=== PATIENT | male | born 1975 | race Caucasian/White ===

== ENCOUNTER 2016-06-21 09:19 | Emergency (ER) | payer OTHER ==
[~2016-06-21] VITALS: Ht 193 cm; Wt 122.5 kg
[~2016-06-21 09:19] MED LIST: BENTYL20 MG PO; SUBOXONE 8 MG-21 FIL SL
--- NOTE | 2016-06-21 10:54 | ED GENERAL ADULT ---
History of Present Illness General Chief Complaint: Lower Extremity Injury Stated Complaint: LEFT KNEE PAIN, S/P INJURY AT WORK Source: patient, old records Exam Limitations: no limitations Vital Signs & Intake/Output Vital Signs & Intake/Output Vital Signs Date Time Temp Pulse Resp B/P Pulse O2 O2 Flow FiO2 Ox Delivery Rate 06/21 1210 85 125/84 06/21 0930 79 22 139/79 99 Allergies Coded Allergies: No Known Allergies (08/14/15) Reconcile Medications BUPRENORPHINE HCL/NALOXONE HCL (Suboxone 8 MG-2 MG Sl Film) 1 GRETCHEN GRETCHEN 1 TAB SL D TO GET OFF PERCOCET (Reported) Diclofenac Sodium 75 MG TABLET.DR 1 TAB PO BID PRN PAIN/SWELLING Dicyclomine Hydrochloride (Bentyl) 20 MG TAB 1 TAB PO 4 TIMES/DAY PRN abdominal pain Triage Note: PER PT L KNEE PAIN X 1 MONTH, WENT TO PMD WAS SCHEDULED FOR XR HAS REQUISTION FOR IT, YESTERDSY WHILE AT WORK, SLIPPED ON ICE AND RE-INJURED IT. PAIN AND SWELLING WORSE. Triage Nurses Notes Reviewed? yes HPI: Patient is a 40-year-old male presents complaining of left knee pain and right hand pain. Patient reports that he injured his left knee approximately one month ago then yesterday he was walking, slipped on the ice and twisted his left knee. Pain is diffuse in the left knee, worse medially. Pain is currently moderate, worsens with palpation and walking. Pain is a sharp pain. Patient also reports pain and swelling to the dorsum of the right hand. Patient reports he broke a bone in the hand approximately 15 years ago, did not seek medical attention at that time and over the past couple of weeks has had increased pain and swelling to the area. Denies any additional trauma to the right hand. Denies head injury, neck pain, back pain. Past History Travel History Traveled to [place] past 21 day No Medical History Any Pertinent Medical History? see below for history Neurological: NONE EENT: NONE Cardiovascular: NONE Respiratory: NONE Gastrointestinal: NONE Hepatic: NONE Renal: NONE Musculoskeletal: NONE Psychiatric: opioid dependence (on suboxone) Endocrine: NONE Blood Disorders: NONE Cancer(s): NONE [employer]/Reproductive: NONE Tetanus Vaccine: Surgical History Surgical History: non-contributory Psychosocial History Who do you live with Significant Other What is your primary language Arabic Tobacco Use: Current Daily Use Daily Tobacco Use Amount/Type: => 5 Cigarettes daily Family History Hx Contributory? No Review of Systems Review of Systems Constitutional: Reports: no symptoms. EENTM: Reports: no symptoms. Respiratory: Denies: short of breath. Cardiovascular: Denies: chest pain. GI: Denies: abdominal pain. Musculoskeletal: Reports: see HPI. Skin: Reports: no symptoms. Neurological/Psychological: Denies: headache, numbness. Hematologic/Endocrine: Denies: bruising, bleeding. Immunologic/Allergic: Denies: splenectomy. Physical Exam Physical Exam General Appearance: well developed/nourished, alert, awake Head: atraumatic Eyes: Bilateral: normal appearance. Ears, Nose, Throat: hearing grossly normal Neck: normal inspection, supple, full range of motion Respiratory: no respiratory distress Peripheral Pulses: 2+ radial (R), 2+ dorsalis pedis (L) Back: normal inspection, normal range of motion Extremities: LEFT KNEE: TENDERNESS LEFT MEDIAL KNEE. nO PATELLAR TENDERNESS. nEGATIVE Winnie'S TEST, VARUS STRESS TEST, VALGUS STRESS TEST. pOSITIVE SWELLING MEDIALLY RIGHT HAND, MILD TENDERNESS AND SWELLING DORSAL SURFACE OVER THE PROXIMAL 2ND META CARPAL. FULL RANGE OF MOTION. Neurologic/Psych: no motor/sensory deficits, awake, alert, oriented x 3, normal gait, normal mood/affect Skin: intact, normal color, warm/dry Core Measures ACS in differential dx? No CVA/TIA Diagnosis: No Severe Sepsis Present: No Septic Shock Present: No Progress Differential Diagnoses I considered the following diagnoses in my evaluation of the patient: Sprain, strain, fracture, tibial plateau fracture, arthritis, meniscus injury Plan of Care: Orders Procedure Date/time Status Durable Medical Equipment 06/21 1153 Active 1150: Results of x-rays discussed with patient. Immobilizer ordered, patient requesting not to have it placed now and will put it on at home. Patient appears stable for discharge with conservative treatment and outpatient follow- up. (AGGIE ARSHAD,ZONIA) Diagnostic Imaging: Viewed by Me: Radiology Read. Discussed w/RAD: Radiology Read. Radiology Impression: PATIENT: SUNI WARD PRESENT AGE: 40 PATIENT ACCOUNT NO: [id number] : 75 LOCATION: [facility] ORDERING PHYSICIAN: ZONIA ARSHAD SERVICE DATE: 06/21/16 EXAM TYPE: RAD - XRY-HAND, RIGHT EXAMINATION: XR HAND, RIGHT CLINICAL INFORMATION: Right hand pain and tenderness. COMPARISON: None TECHNIQUE: Right hand, 3 views FINDINGS: An old, mildly displaced fracture of the proximal metadiaphysis of the index metacarpal has completely healed. Bones have normal alignment throughout the hand and wrist. No acute fracture, subluxation or focal soft tissue swelling. Small marginal osteophytes are present at the 3rd and 4th metacarpophalangeal joints. IMPRESSION: 1. No acute osseous injury within the right hand or wrist. 2. Old healed fracture of the index metacarpal. 3. 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 DICTATED BY: MARK MCFADDEN MD DATE/TIME DICTATED:06/21/161140 PHOTOGRAPHER AERIAL:EMI DATE/TIME TRANSCRIBED:06/21/161140 CONFIDENTIAL, DO NOT COPY WITHOUT APPROPRIATE AUTHORIZATION. <Electronically signed in Other Vendor System> SIGNED BY: MARK MCFADDEN MD 06/21/16 1148, PATIENT: SUNI WARD PRESENT AGE: 40 PATIENT ACCOUNT NO: [id number] : 75 LOCATION: [facility] ORDERING PHYSICIAN: ZONIA ARSHAD SERVICE DATE: EXAM TYPE: RAD - XRY-KNEE COMPLETE LEFT EXAMINATION: XR KNEE, LEFT CLINICAL INFORMATION: Left knee injury with medial tenderness COMPARISON: None. TECHNIQUE: Left knee, 4 views FINDINGS: Bones have normal alignment. The patellofemoral and tibiofemoral joint spaces are maintained. No acute fracture. Moderate joint effusion is present. IMPRESSION: 1. No acute fracture or subluxation at the left knee. 2. Moderate joint effusion is present -- possibly secondary to internal derangement. DICTATED BY: MARK MCFADDEN MD DATE/TIME DICTATED:06/21/161137 PHOTOGRAPHER AERIAL:MARIE DATE/TIME TRANSCRIBED:1137 CONFIDENTIAL, DO NOT COPY WITHOUT APPROPRIATE AUTHORIZATION. < Electronically signed in Other Vendor System> SIGNED BY: MARK MCFADDEN MD 06/21/16 114 Initial ED EKG: none Departure Departure Time of Disposition: 1155 Disposition: HOME OR SELF CARE Condition: Stable Clinical Impression Primary Impression: Knee MCL sprain Qualifiers: Encounter type: initial encounter Laterality: left Qualified Code: S83.412A - Sprain of medial collateral ligament of left knee, initial encounter Secondary Impressions: Hand arthritis Referrals: MILENA LATHAM,CARMENCITA Dominguez (PCP/Family) CHE LATHAM,REJI Additional Instructions: Rest, ice for 20 minutes 4-5 times a day, elevate, wear knee immobilizer for support. Follow-up with your primary care provider or with the orthopedic podiatrist listed in her discharge paperwork for further evaluation. Call Wednesday for appointment. Departure Forms: Customer Survey General Discharge Information Prescriptions: Current Visit Scripts Diclofenac Sodium 1 TAB PO BID PRN PAIN/SWELLING #15 TAB Critical Care Note Critical Care Note Critical Care Time: non-applicable
--- NOTE | 2016-06-21 11:43 | RADIOLOGY REPORT ---
EXAMINATION: XR KNEE, LEFT CLINICAL INFORMATION: Left knee injury with medial tenderness COMPARISON: None. TECHNIQUE: Left knee, 4 views FINDINGS: Bones have normal alignment. The patellofemoral and tibiofemoral joint spaces are maintained. No acute fracture. Moderate joint effusion is present. IMPRESSION: 1. No acute fracture or subluxation at the left knee. 2. Moderate joint effusion is present -- possibly secondary to internal derangement.
--- NOTE | 2016-06-21 11:48 | RADIOLOGY REPORT ---
EXAMINATION: XR HAND, RIGHT CLINICAL INFORMATION: Right hand pain and tenderness. COMPARISON: None TECHNIQUE: Right hand, 3 views FINDINGS: An old, mildly displaced fracture of the proximal metadiaphysis of the index metacarpal has completely healed. Bones have normal alignment throughout the hand and wrist. No acute fracture, subluxation or focal soft tissue swelling. Small marginal osteophytes are present at the 3rd and 4th metacarpophalangeal joints. IMPRESSION: 1. No acute osseous injury within the right hand or wrist. 2. Old healed fracture of the index metacarpal. 3. 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
[2016-06-21] MEDS ORDERED: DICLOFENAC SODI75 M2 PO (11:56)
[2016-06-21 12:10] VITALS: BP 125/84
== END 2016-06-21 12:13 ==
LOC: ERH 09:19
DX: S83.412A Sprain of medial collateral ligament of left knee, initial encounter (principal); X58.XXXA Exposure to other specified factors, initial encounter
CPT/HCPCS: 73130-RT; 73562-LT